=== PATIENT | female | born 1975 | race Caucasian/White ===

== ENCOUNTER 2019-02-14 15:03 | Emergency (ER) | payer BC ==
[2019-02-14 16:27] VITALS: BP 124/78
[2019-02-14] MEDS ORDERED: Albuterol 2.5 MG/3 ML NEB.SOL* (0.083%) INH ONE (16:40)
[2019-02-14] MEDS ORDERED: Ipratropium 0.5MG/2.5ML NEB* 0.5 MG/2.5 ML NEB.SOLN INH ONE (16:40)
--- NOTE | 2019-02-14 16:40 | UC ---
Respiratory Complaint HPI - HPI Summary HPI Summary: 43 yo female asthmatic with > 1 week hx of cough/chills/postnasal drip/wheezing and fatigue Seen 5 days ago and started on doxy and albuterol for walking pneumonia not better very fatigued - History of Current Complaint Chief Complaint: UCGeneralIllness Stated Complaint: CHILLS,FATIGUE,COUGH Time Seen by Provider: 02/14/19 16:12 Hx Obtained From: Patient Hx Last Menstrual Period: n/a has IUD Onset/Duration: Gradual Onset, Lasting Days Timing: Constant Severity Initially: Mild Severity Currently: Moderate Pain Intensity: 0 Pain Scale Used: 0-10 Numeric Character: Cough: Productive Aggravating Factors: Deep Breaths, Recumbent Position Alleviating Factors: Nothing Associated Signs And Symptoms: Positive: Chills, Wheezing, Nasal Congestion, Hoarseness, Sinus Discomfort - Allergies/Home Medications Allergies/Adverse Reactions: Allergies Allergy/AdvReac Type Severity Reaction Status Date / Time acetaminophen [From Percocet] Allergy Unknown Verified 02/14/19 16:16 Reaction Details cephalexin [From Keflex] Allergy Rash Verified 02/14/19 16:16 nebivolol [From Bystolic] Allergy Unknown Verified 02/14/19 16:16 Reaction Details oxycodone [From Percocet] Allergy Unknown Verified 02/14/19 16:16 Reaction Details SEASONAL HAYFEVER Allergy SNEEZING, Uncoded 10/27/15 13:28 WATERY ITCHY EYES, RUNNY NOSE Home Medications: Home Medications Azelastine/Fluticasone ELENI(NF [Dymista(NF)] 1 spray INH DAILY 02/14/19 [History Confirmed 02/14/19] Desloratadine/Pseudoephedrine [Clarinex-D 12 Hour Tablet] 1 tab PO DAILY [History Confirmed 02/14/19] FLUoxetine CAP* [PROzac CAP*] 20 mg PO DAILY 02/14/19 [History Confirmed ] Gabapentin [Neurontin] 100 mg PO TID PRN 02/14/19 [History Confirmed 02/14/19] PMH/Surg Hx/FS Hx/Imm Hx Previously Healthy: Yes Cardiovascular History: Hypertension Respiratory History: Asthma, Bronchitis, Pneumonia - Surgical History Surgical History: Yes Surgery Procedure, Year, and Place: TONSILLECTOMY AGE 18 OR 19, [facility]. 2007 CERVICAL COLD CONE BIOPSY, [facility]. 2009 , [facility] [place]. 2012 LAPAROSCOPIC GASTRIC BYPASS, [facility] [place] STRETCHING OF ANASTAMOSIS (multiple), [facility] [place]. CHOLYCYSTECTOMY. . - Family History Known Family History: Positive: Hypertension - Social History Alcohol Use: None Substance Use Type: None Smoking Status (MU): Heavy Every Day Tobacco Smoker Type: Cigarettes Amount Used/How Often: 1/2 ppd Length of Time of Smoking/Using Tobacco: SINCE AGE 19 Have You Smoked in the Last Year: Yes Review of Systems All Other Systems Reviewed And Are Negative: Yes Constitutional: Positive: Chills, Fatigue Eyes: Positive: Negative ENT: Positive: Nasal Discharge, Sinus Congestion, Sinus Pain/Tenderness Respiratory: Positive: Cough, Other - wheezing Cardiovascular: Positive: Negative Gastrointestinal: Positive: Negative Genitourinary: Positive: Negative Motor: Positive: Negative Neurovascular: Positive: Negative Musculoskeletal: Positive: Negative Neurological: Positive: Negative Psychological: Positive: Negative Physical Exam Triage Information Reviewed: Yes Appearance: Well-Appearing, No Pain Distress, Well-Nourished Vital Signs: Initial Vital Signs Temp 98.6 F 02/14/19 16:20 Pulse 84 02/14/19 16:20 Resp 16 02/14/19 16:20 BP 124/78 02/14/19 16:20 Pulse Ox 99 02/14/19 16:20 Eye Exam: Normal Eyes: Positive: Conjunctiva Clear ENT: Positive: Hearing grossly normal, Nasal congestion, TMs normal, Hoarse voice, Sinus tenderness, Uvula midline. Negative: Pharyngeal erythema, Nasal drainage, Tonsillar swelling, Tonsillar exudate, Trismus, Muffled voice, Dental tenderness Neck: Positive: Supple, Nontender, No Lymphadenopathy Respiratory: Positive: No respiratory distress, No accessory muscle use, Wheezing - with forced exp, Other: - bronchospastic cough Cardiovascular: Positive: RRR Musculoskeletal: Positive: ROM Intact, No Edema Neurological: Positive: Alert Psychological Exam: Normal Skin Exam: Normal Diagnostics - Radiology No standard instances Radiology Interpretation Completed By: Radiologist Summary of Radiographic Findings: NAD Re-Evaluation - Re-Evaluation First Eval Re-Evaluation Time: 17:16 Change: Improved Respiratory Course/Dx - Differential Dx/Diagnosis Provider Diagnosis: Acute bronchitis with bronchospasm Discharge ED - Sign-Out/Discharge Documenting (check all that apply): Patient Departure All imaging exams completed and their final reports reviewed: Yes - Discharge Plan Condition: Stable Disposition: HOME Patient Education Materials: Acute Bronchitis (ED) Referrals: Hilda Og NP [Primary Care Provider] - - Billing Disposition and Condition Condition: STABLE Disposition: Home
== END 2019-02-14 17:26 | disposition home or self-care (01) ==
LOC: UCCORT 15:03
DX: J45.909 Unspecified asthma, uncomplicated (principal); J20.9 Acute bronchitis, unspecified; I10 Essential (primary) hypertension; R09.81 Nasal congestion; F17.210 Nicotine dependence, cigarettes, uncomplicated; Z88.1 Allergy status to other antibiotic agents; Z88.5 Allergy status to narcotic agent; Z88.8 Allergy status to other drugs, medicaments and biological substances; Z91.09 Other allergy status, other than to drugs and biological substances
CPT/HCPCS: 71046; 99213; G0463